=== PATIENT | male | born 1960 | race Caucasian/White ===

== ENCOUNTER 2020-05-04 05:32 | Inpatient (IN) | payer OTHER, SELFPAY ==
[2020-05-04] VITALS (23 sets, daily range): BP systolic 131–193; BP diastolic 79–109; PULSE 60–92; RESP 18–24; TEMP 36.2–37; O2SAT 93–96; BMI 25.6
--- NOTE | 2020-05-04 | ECHO_ITS ---
Patient Info Name: Thierry Oropeza Age: 59 years : 1960 Gender: Male Ht: 70 in Wt: 178 lbs BSA: 2.01 m2 HR: 78 bpm BP: 145 / 90 mmHg Technical Quality: Good Exam Date: 05/04/2020 4:20 PM Exam Location: [facility] Pulmonary Exam Room: 209 Patient Status: Inpatient Admit Date: 05/04/2020 Staff Ordering Physician: Rose Davila NP Corrugator: Nancy Burger RCS Attending Provider: Tiera Carlos MD Referring Physician: Lola GRIMES; Exam Type: CA echo doppler color flow Study Info Indications - PE HTN CP SOB Complete two-dimensional, color flow and Doppler transthoracic echocardiogram is performed. Summary 1. Left ventricular systolic function is normal, estimated at 60-65%. 2. The left ventricular diastolic function is normal. 3. There is trace mitral valve regurgitation. 4. There is trace tricuspid valve regurgitation. 5. No pulmonary hypertension, estimated pulmonary arterial systolic pressure is 19 mmHg. 6. There is mild pulmonic regurgitation. Left Ventricle Left ventricular chamber dimension is normal. Left ventricular systolic function is normal, estimated at 60-65%. There is no increased left ventricular wall thickness. Left ventricular septal wall motion is normal. The left ventricular diastolic function is normal. Global longitudinal strain is normal at -18 %. Right Ventricle Right ventricular chamber dimension is normal. Right ventricular systolic function is normal. Left Atria Left atrial chamber dimension is normal. Right Atria Right atrial chamber dimension is normal. Atrial Septum Intact interatrial septum visualized by color flow imaging. Aortic Valve The aortic valve is trileaflet. There is no aortic valve sclerosis. There is no aortic valve stenosis. There is no aortic valve regurgitation. Pulmonic Valve The pulmonic valve is normal. There is no pulmonic valve stenosis. There is mild pulmonic regurgitation. Mitral Valve The mitral valve has thickened leaflets. There is no mitral valve stenosis. There is trace mitral valve regurgitation. Tricuspid Valve The tricuspid valve leaflets are normal. There is no significant tricuspid valve stenosis. There is trace tricuspid valve regurgitation. No pulmonary hypertension, estimated pulmonary arterial systolic pressure is 19 mmHg. Pericardium/Pleural The pericardium appears normal. There is no pericardial effusion. Inferior Vena Cava Normal inferior vena cava with >50% collapse upon inspiration consistent with normal right atrial pressure, 5 mmHg. Aorta The aortic root size at the sinus of Valsalva is normal. The prox ascending aorta size is normal. Left Ventricular Outflow Tract Name Value Normal LVOT 2D LVOT Diameter 2.1 cm LVOT Doppler LVOT Peak Gradient 4 mmHg LVOT Mean Gradient 2 mmHg LVOT VTI 20 cm LVOT VTI/AV VTI Ratio 0.9 LVOT Stroke Volume 71 ml LVOT CO 15.2 l/min
--- NOTE | ~2020-05-04 | US_ITS ---
EXAMINATION: US venous doppler [facility] DATE: 05/04/2020 08:18 INDICATION: Pulmonary emboli. Shortness of breath. TECHNIQUE: Grayscale ultrasound images without and with compression and Doppler ultrasound images of the bilateral lower extremity veins were obtained. COMPARISON: None. FINDINGS: The visualized portions of right common femoral vein, profunda (deep) femoral vein, femoral vein, pop liteal vein, posterior tibial veins, peroneal veins, gastrocnemius vein and greater saphenous vein ou tflow are patent. The visualized portions of left common femoral vein, profunda femoral vein, femoral vein, popliteal v ein, posterior tibial veins, peroneal veins, gastrocnemius vein and greater saphenous vein outflow ar e patent. IMPRESSION: 1. No deep venous thrombosis in either lower limb. Reviewed, dictated and finalized at location A.
--- NOTE | ~2020-05-04 | CT_ITS ---
EXAMINATION: CTA chest PE protocol DATE: 05/04/2020 06:23 INDICATION: Chest pain and shortness of breath TECHNIQUE: Computed tomography (CT) pulmonary angiogram of the chest was performed with 100 mL Omnipa que-350 intravenous contrast. Additional 3D reconstructions utilizing coronal maximum intensity proje ction (MIP) were performed. Automated exposure control and iterative reconstruction technique were em ployed. The dose-length product was 388.16 mGy-cm. COMPARISON: None FINDINGS: Excellent contrast opacification of the pulmonary arteries. There is mild streak artifact from dense contrast in the superior vena cava and right atrium. Mild scattered respiratory motion artifact. Ther e are scattered pulmonary emboli in a few of the distal segmental and subsegmental pulmonary arteries of both the left and right lower lobes still with relatively low clot burden. Tiny bilateral pleural effusions with mild atelectasis along the lung bases and in the dependent lower lobes. Small periphe ral region of groundglass opacity in the lateral basilar segment of the left lower lobe peripheral to a pulmonary embolism most likely representing a small pulmonary infarct. Mild emphysema with upper l dolores predominance. Heart size is normal. No leftward bowing of the ventricular septum to suggest right heart strain. No pericardial effusion. Atherosclerotic coronary artery calcification. Thoracic aorta is normal in kristin danika with no dissection. No pathologically enlarged thoracic lymphadenopathy. The visualized upper abd omen is unremarkable. Mild to moderate thoracic spondylosis. IMPRESSION: 1. Pulmonary emboli in the bilateral lower lobes with relatively low clot burden. 2. Small pulmonary infarct in the lateral basilar segment of the left lower lobe and tiny bilateral p leural effusions. Reviewed, dictated and finalized at location A. IMPRESSION: 1. Pulmonary emboli in the bilateral lower lobes with relatively low clot burde n. 2. Small pulmonary infarct in the lateral basilar segment of the left lower lob e and tiny bilateral pleural effusions.
--- NOTE | 2020-05-04 05:34 | ECG_ITS ---
Measurements Intervals [place] Rate: 92 P: 125 WI: 154 QRS: 151 QRSD: 81 T: 155 QT: 363 QTc: 451 Interpretive Statements SINUS RHYTHM ARM LEADS REVERSED BASELINE ARTIFACT- I, II, III, AVR, AVL, AVF, V3-V6 ATYPICAL ECG Electronically Signed On 05-04-2020 7:40:07 CDT by Donaldo Danielle D.O.
--- NOTE | 2020-05-04 05:47 | ED.SOB ---
HPI - SOB/Dyspnea General Chief Complaint: Shortness of Breath/Dyspnea Stated Complaint: sob Time Seen by Provider: 05/04/20 05:47 History of Present Illness HPI Narrative: Patient is a 59-year-old male who presents the ER with chest pain and shortness of breath. Patient reports about a week ago he started having right-sided chest pain anterior chest wall. Did not think much of it but now he is developing diffuse pains to his chest and his back. This began about 12 hours ago. Pain is worse with deep breath. Is causing him to hyperventilate the anxious. Denies any recent runny nose/sore throat/productive cough. He has had no recent trauma or lower extremity swelling. No long distance travel. Mother has history of blood clots. He has had no hemoptysis. Smokes a pack a day. Related Data Home Medications Medication Instructions Recorded Confirmed No Home Medications 05/04/20 Allergies Allergy/AdvReac Type Severity Reaction Status Date / Time No Known Allergies Allergy Unverified 11/21/17 13:19 Review of Systems Review of Systems: All systems reviewed & are unremarkable except as noted in HPI and below Constitutional: Constitutional: Denies chills, Denies fever(s) and Denies weakness ENT: Denies nasal congestion and Denies sore throat Cardiovascular: Cardiovascular: Reports chest pain and Denies radiating jaw, neck or arm pain Respiratory: Respiratory: Denies chest congestion, Reports cough, Reports dyspnea and Denies wheezing Gastrointestinal: Gastrointestinal: Denies abdominal pain, Denies diarrhea, Denies nausea and Denies vomiting PMFSH Past Medical History Medical History (Updated 05/04/20 @ 07:46 by Hua Walker MD) Hypertension Surgical History Surgical History (Updated 05/04/20 @ 06:29 by Hua Walker MD) No history of previous surgery Family History Family History (Updated 01/03/18 @ 13:56 by DOCTOR UNKNOWN) Father Diabetes mellitus, Onset Age: 66 Social History Social History Smoking status: Former smoker Smoking end date: 11/11/16 Exam Narrative: Exam Narrative: GENERAL: Anxious and uncomfortable-appearing, well-nourished, and in moderate distress. HEAD: Normocephalic, atraumatic. ENT: Mucous membranes moist. CHEST: Diffuse rhonchi. Tachypnea speaking in 4-5 word sentences. HEART: Regular rate and rhythm. No murmur heard. Normal peripheral pulses. ABDOMEN: Soft, nontender, nondistended. EXTREMITIES: Normal range of motion. No edema. SKIN: Warm, dry, no rash. NEURO: Alert and oriented x3. Course Course Emergency Course: Patient became much more comfortable while in the ER prior to receiving any pain medication. Still is having pain but decreased significantly. Still has discomfort with deep breath. CT with evidence of PE. Patient will be admitted to hospitalist service. Vital Signs Vital signs: Vital Signs Temperature 97.9 F 05/04/20 05:36 Pulse Rate 92 05/04/20 05:36 Respiratory Rate 20 05/04/20 05:36 Blood Pressure 193/109 H 05/04/20 05:36 Pulse Oximetry 96 05/04/20 05:36 Temperature 97.9 F 05/04/20 06:24 Pulse Rate 66 05/04/20 07:21 Respiratory Rate 20 05/04/20 07:21 Blood Pressure 152/87 H 05/04/20 07:21 Pulse Oximetry 95 05/04/20 07:21 MDM - SOB/Dyspnea Lab Data Result diagrams: 05/04/20 05:46 05/04/20 05:46 Labs: Lab Results 05/04/20 05/04/20 05/04/20 Range/Units 05:46 05:46 05:47 WBC 11.0 H (4.5-10.0) K/mm3 RBC 5.04 (4.6-6.20) M/mm3 Hgb 16.9 (14.0-18.0) g/dL Hct 49.7 (42.0-52.0) % MCV 98.6 (80-100) fl MCH 33.5 (26-34) pg MCHC 34.0 (32-36) g/dl RDW 13.4 (11.5-14.5) % Plt Count 311 (150-375) k/mm3 MPV 9.7 (7.4-10.4) fl Immature Gran % (Auto) 0.3 (0-0.5) % Neut % (Auto) 59.3 (45.5-73.1) % Lymph % (Auto) 25.8 (18.3-44.2) % [place] % (Auto) 10.1 H (2.6-8.5) % Eos % (Auto) 3.6
[2020-05-04 05:54] LABS: Basophils Absolute Auto 0.1 K/mm3 (0.0-0.1); Basophils Percent Auto 0.9 % (0.2-1.2); Eosinophils Absolute Auto 0.4 K/mm3 (0-0.3); Eosinophils Percent Auto 3.6 % (0-4.4); Hematocrit 49.7 % (42.0-52.0); Hemoglobin 16.9 g/dL (14.0-18.0); Immature Granulocyte Absolute 0.03 K/mm3 (0.00-0.031); Immature Granulocyte Percent A 0.3 % (0-0.5); Lymphocytes Absolute Auto 2.83 K/mm3 (0.9-3.2); Lymphocytes Percent Auto 25.8 % (18.3-44.2); Mean Corpuscular Hemoglobin 33.5 pg (26-34); Mean Corpuscular Volume 98.6 fl (80-100); Mean Platelet Volume 9.7 fl (7.4-10.4); Monocytes Absolute Auto 1.1 K/mm3 (0.1-0.6); Monocytes Percent Auto 10.1 % (2.6-8.5); Neutrophils Absolute Auto 6.5 K/mm3 (1.3-6.7); Neutrophils Percent Auto 59.3 % (45.5-73.1); Platelet Count Result 311 k/mm3 (150-375); Red Blood Count 5.04 M/mm3 (4.6-6.20); Red Cell Distribution Width 13.4 % (11.5-14.5)
[2020-05-04] MEDS: MORPHINE SULFATE 4 MG/ML INJ IV PUSH ×2 (05:54→16:17)
[2020-05-04 06:02] LABS: Alveolar/Arterial O2 Gradient 48.4 mmHg; Base Excess ABG -2.5 mEq/l (+/-2.0); Carboxyhemoglobin 2.9 % THb (0-2.0); Fractional Inspired Oxygen 21 %; HCO3 ABG 20.8 mEq/l (22.0-26.0); Methemoglobin ABG 0.5 %THb (0-1.5); Oxygen Content ABG 20.9 %vol (16.0-22.0); Oxygen Saturation ABG 92.8 % (95.0-100.0); Oxyhemoglobin 89.2 % THb (90.0-100.0); PCO2 ABG 32.3 mmHg (35.0-45.0); PO2 ABG 62.7 mmHg (80.0-100.0); PO2 FiO2 Ratio Arterial Blood 2.99 %; Reduced Hemoglobin 7.4 %THb (0-5.0); Total Hemoglobin 16.7 g/dL (12.0-18.0); pH ABG 7.426 (7.350-7.450)
[2020-05-04 06:03] LABS: Site Drawn RIGHT RADIAL
[2020-05-04 06:04] LABS: Device ROOM AIR; Modified Allen's Test Pass
[2020-05-04 06:04] LABS: INR 0.9; Prothrombin Time 12.2 Seconds (11.1-14.7)
[2020-05-04 06:05] LABS: Partial Thromboplastin Time 32.3 SECONDS (22.3-36.8)
[2020-05-04 06:06] LABS: Blood Urea Nitrogen 12 mg/dL (9-20); Calcium 9.6 mg/dL (8.4-10.2); Carbon Dioxide 27 mmol/L (22-30); Chloride 104 mmol/L (98-107); Estimated CRCL calculation 89 ml/min; Estimated Glomerular Filt Rate > 60; Glucose 102 mg/dL (75-110); Potassium 4.4 mmol/L (3.4-5.0); Sodium 137 mmol/L (137-145)
[2020-05-04 06:15] LABS: NT Pro B Type Natriuretic Pept 119 PG/ML (5-100)
[2020-05-04 06:21] LABS: Troponin I < 0.012 ng/mL (0.000-0.034)
--- NOTE | 2020-05-04 07:20 | PC.NURSE ---
Assumed care of pt, pt is alert and upright on stretcher. at bedside. Discussed POC. VSS.
[2020-05-04] MEDS: HEPARIN SODIUM 5,000 UNITS/ML VIAL 6500 UNITS IV PUSH (07:32)
--- NOTE | 2020-05-04 07:53 | PC.NURSE ---
Pt to U/S via stretcher.
[2020-05-04] MEDS: HEPARIN SOD/D5W 100 UNITS/ML 25,000 UNITS/250 ML BAG 15 UNITS IV CONT (08:43)
--- NOTE | 2020-05-04 09:07 | ADMGEN ---
This patient, Thierry Oropeza, was admitted to IMU Room 209- 0900. Patient/family oriented to hospital policies and general routines including ID bracelet, bed and alarms, visiting hours, pain management, procedures, bathroom and other care routines, personal items, smoking policy, room service/diet, and visiting hours. Valuables list has been completed. Information on how to activate the Rapid Response Team has been discussed. Patient/Family are encouraged to report perceived risks to care and to ask questions if they do not understand what they are told or what they should do.
[2020-05-04 11:16] LABS: Troponin I < 0.012 ng/mL (0.000-0.034)
[2020-05-04 14:51] LABS: Partial Thromboplastin Time 114.7 SECONDS (22.3-36.8)
--- NOTE | 2020-05-04 14:59 | PM.IMHP ---
H&P: HPI History of Present Illness Chief complaint: pulmonary embolism Narrative: Thierry Oropeza is a 59 year old male no prior history of having any PEs or DVTs. The patient stated that he had a leg cramp about 2 or 3 weeks ago but in the morning he woke up and was just sore. The patient stated also couple weeks ago he felt like he strained his muscles on the right side of his chest. Since then he has been short of breath. The patient stated he felt like he pulled a muscle and lasted for 2 days and it went away but then it came back. The patient has been having some right-sided chest pain anterior wall chest pain. And then the patient had diffuse pains to his chest and back that started about 12 hours ago. The pain is worse with deep breath. He said he just started smoking again after quitting for 9 months. The pain has caused him to hyperventilate and become anxious. He has had a loose nonproductive cough he has had no recent trauma or any swelling to his lower extremities. He has had no immobility no recent surgery or any long distance travel. His mother had blood clots after she had a knee replacement. He smokes about a pack a cigarettes a day. CT a pulmonary was read as bilateral pulmonary emboli and lower lobes with relatively low clot burden. Small pulmonary infarct in the lateral basilar segment of the left lower lobe and tiny bilateral pleural effusions. Patient was started on heparin drip. Review of Systems Review of Systems: All systems reviewed & are unremarkable except as noted in HPI and below Constitutional: Constitutional: Reports as per HPI and Reports no additional constitutional complaints Eyes: Eyes: Reports as per HPI and Reports no additional eye complaints ENT: Reports system reviewed and no additional complaints, except as documented and Reports Normal hearing present Cardiovascular: Cardiovascular: Reports no additional cardiovascular complaints Respiratory: Respiratory: Reports no additional respiratory complaints and Reports no additional respiratory complaints Gastrointestinal: Gastrointestinal: Reports as per HPI and Reports no additional gastrointestinal complaints Musculoskeletal: Musculoskeletal: Reports no additional musculoskeletal complaints Integumentary/Breasts: Skin/Breast: Reports system reviewed and no additional complaints, except as docu and Reports as per HPI Neurologic: Reports system reviewed and no additional complaints, except as documented, Reports as per HPI and Reports Normal hearing present Psychiatric: Psychiatric: Reports no additional psychiatric complaints and Reports as per HPI Endocrine: Endocrine: Reports no additional endocrine complaints Hematologic/Lymphatic: Hematologic/Lymphatic: Reports no additional hematologic/lymphatic complaints Allergic/Immunologic: Allergic/Immunologic: Reports no additional allergic/immunologic complaints PMFSH Past Medical History Medical History (Updated 05/04/20 @ 15:08 by Rose Davila NP) Hypertension Surgical History Surgical History (Updated 05/04/20 @ 15:08 by Rose Davila NP) S/P arthroscopic surgery of right knee Family History Family History (Updated 05/04/20 @ 15:06 by Rose Davila NP) Father Diabetes mellitus, Onset Age: 66 Mother Postoperative deep vein thrombosis (DVT) Pulmonary emboli Postop Social History Social History (Updated 05/04/20 @ 15:12 by Rose Davila NP) Social History: The patient lives with his . She he desires to have her is the durable power real estate associate attorney for healthcare. Patient desires to be a full code. The patient works for [employer]. The patient has 1 son. Patient stated that he quit smoking for 9 months and then recently went back to smoking again at least a pack a cigarettes a day. However he tells me that he is quitting today. He denies any marijuana or illicit drugs. Smoking packs per day: 1 Smoking cigarettes per day: 20
[2020-05-04 15:02] LABS: Troponin I < 0.012 ng/mL (0.000-0.034)
[2020-05-04 21:12] LABS: Partial Thromboplastin Time 73.5 SECONDS (22.3-36.8)
[2020-05-05] VITALS (15 sets, daily range): BP systolic 117–130; BP diastolic 69–82; PULSE 60–98; RESP 18–24; TEMP 35.7–36.8; O2SAT 18–96
[2020-05-05 03:13] LABS: Basophils Absolute Auto 0.1 K/mm3 (0.0-0.1); Basophils Percent Auto 0.8 % (0.2-1.2); Eosinophils Absolute Auto 0.4 K/mm3 (0-0.3); Eosinophils Percent Auto 3.3 % (0-4.4); Hematocrit 44.7 % (42.0-52.0); Hemoglobin 15.4 g/dL (14.0-18.0); Immature Granulocyte Absolute 0.04 K/mm3 (0.00-0.031); Immature Granulocyte Percent A 0.4 % (0-0.5); Lymphocytes Absolute Auto 2.29 K/mm3 (0.9-3.2); Lymphocytes Percent Auto 21.1 % (18.3-44.2); Mean Corpuscular HGB Conc 34.5 g/dl (32-36); Mean Corpuscular Hemoglobin 33.9 pg (26-34); Mean Corpuscular Volume 98.5 fl (80-100); Mean Platelet Volume 9.8 fl (7.4-10.4); Monocytes Absolute Auto 0.9 K/mm3 (0.1-0.6); Neutrophils Absolute Auto 7.2 K/mm3 (1.3-6.7); Neutrophils Percent Auto 66.4 % (45.5-73.1); Platelet Count Result 271 k/mm3 (150-375); Red Blood Count 4.54 M/mm3 (4.6-6.20); Red Cell Distribution Width 13.5 % (11.5-14.5); White Blood Count 10.8 K/mm3 (4.5-10.0)
[2020-05-05 03:24] LABS: Partial Thromboplastin Time 84.4 SECONDS (22.3-36.8)
[2020-05-05 03:26] LABS: Alanine Aminotransferase 17 U/L (4-50); Alkaline Phosphatase 96 U/L (38-126); Aspartate Amino Transferase 20 U/L (17-59); Bilirubin,Total 0.7 mg/dL (0.2-1.3); Blood Urea Nitrogen 12 mg/dL (9-20); Calcium 9.1 mg/dL (8.4-10.2); Carbon Dioxide 25 mmol/L (22-30); Chloride 103 mmol/L (98-107); Estimated CRCL calculation 89 ml/min; Estimated Glomerular Filt Rate > 60; Glucose 103 mg/dL (75-110); Lactic Acid 0.7 mmol/L (0.7-2.1); Potassium 4.1 mmol/L (3.4-5.0); Sodium 135 mmol/L (137-145)
[2020-05-05] MEDS: HEPARIN SOD/D5W 100 UNITS/ML 25,000 UNITS/250 ML BAG 13 UNITS IV CONT ×2 (03:26→23:50)
[2020-05-05] MEDS: MORPHINE SULFATE 4 MG/ML INJ IV PUSH ×2 (08:52→17:47)
--- NOTE | 2020-05-05 10:31 | PM.IMPN ---
Progress Note: A&P Assessment and Plan (1) Pulmonary embolism: Code(s): I26.99 - Other pulmonary embolism without acute cor pulmonale Status: Acute Assessment and Plan: The patient is currently on heparin drip. [place] and morphine available for pain. Still SOB with pleuritic chest pain but better. Venous Dopplers are negative. Troponin negative x3. Echo essentially normal. Change to oral Eliquis tomorrow. 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 (2) Elevated blood pressure reading in office without diagnosis of hypertension: Code(s): R03.0 - Elevated blood-pressure reading, without diagnosis of hypertension Status: Acute Assessment and Plan: BP 193/109 on admission. Patient has no prior history of hypertension and is not on any medication for this. P.r.n. hydralazine and received one dose yesterday. Could be due to the pain. BP has improved which could be due to the narcotics.. (3) Tobacco abuse: Code(s): Z72.0 - Tobacco use Status: Acute Assessment and Plan: Patient was educated about the benefits of smoking cessation. Subjective Date/time seen: 05/05/20 10:31 Interval history: 59yo male here for SOB and found to have PE. Still with trouble with deep breathing causing CP. No hx of DVT/PE. Son and mother (after a knee replacement) had VTE. No n/v. Feels better today. Exam Narrative: Exam Narrative: AF 124/74 69 24 95% ra Gen - NARD Chest -distant but clear breath sounds. CV -regular rate and rhythm. S1-S2. Telemetry showing no significant dysrhythmias. Abd - Soft, NT/ND, Positive BS Ext - No pedal edema Psych - Nml mood and affect Skin - Warm and dry Objective Data Vital Signs Vital Signs: Vital Signs - 24 hr 05/04/20 12:00 05/04/20 12:18 05/04/20 14:00 Temperature 97.5 F L Pulse Rate 69 70 72 Respiratory Rate 24 H Blood Pressure 145/90 H Pulse Oximetry 96 05/04/20 16:00 05/04/20 18:00 05/04/20 20:00 Temperature 98.6 F Pulse Rate 69 82 74 Respiratory Rate 22 H Blood Pressure 157/99 H Pulse Oximetry 96 05/04/20 20:06 05/04/20 22:00 05/04/20 23:33 Temperature 98.5 F 97.1 F L Pulse Rate 73 60 67 Respiratory Rate 22 H 18 Blood Pressure 132/80 137/84 Pulse Oximetry 94 93 05/05/20 00:00 05/05/20 02:00 05/05/20 03:25 Temperature 96.3 F L Pulse Rate 72 65 71 Respiratory Rate 18 Blood Pressure 124/82 Pulse Oximetry 93 05/05/20 04:00 05/05/20 06:00 05/05/20 08:00 Temperature 97.8 F Pulse Rate 60 69 72 Respiratory Rate 24 H Blood Pressure 124/74 Pulse Oximetry 95 05/05/20 10:00 Temperature Pulse Rate 69 Respiratory Rate Blood Pressure Pulse Oximetry Intake/Output Intake/Output: Intake & Output 05/02/20 05/03/20 05/04/20 05/05/20 23:59 23:59 23:59 23:59 Intake Total 1680 510 Output Total 1500 675 Balance 180 -165 Meds/Results Medications: Active Medications Generic Name Dose Route Start Last Admin Trade Name Freq PRN Reason Stop Dose Admin Acetaminophen 650 mg 05/04/20 07:41 Tylenol Tablet PO Q4H PRN Mild Pain (1-3) or Fever Hydrocodone Bitart/Acetaminophen 1 tab 05/04/20 07:41 [place] 5-325 Mg PO Q4H PRN Pain Rated 4-6 Heparin Sodium (Porcine) 6,500 units 05/04/20 07:26 Heparin Sodium IV PUSH PRN PRN aPTT less than 55 seconds Heparin Sodium (Porcine) 3,500 units 05/04/20 07:26 Heparin Sodium IV PUSH PRN PRN aPTT 55 - 70 seconds Hydralazine HCl 10 mg 05/04/20 15:15 Apresoline Hcl Inj IV PUSH Q8H PRN Blood Pressure - High Heparin Sodium/Dextrose 25,000 units in 250 mls @ 13 mls/hr 05/04/20 07:30 05/05/20 05:48 Heparin Sodium/D5w 100 Units/Ml IV CONT 1,300 units/hr .[id number] CHRISTINE 13 mls/hr Titration Protocol 1,300 UNITS/HR Morphine Sulfate 4 mg 05/04/20 07:41 05/05/20 08:52 Morphine Sulfate Inj IV PUSH
[2020-05-06] VITALS: PULSE 70
[2020-05-06 03:53] VITALS: BP 114/70; PULSE 75; RESP 16; TEMP 36.6; O2SAT 93
[2020-05-06 04:00] VITALS: PULSE 72
[2020-05-06 05:02] LABS: Partial Thromboplastin Time 72.4 SECONDS (22.3-36.8)
[2020-05-06 08:00] VITALS: BP 127/76; PULSE 72; RESP 14; TEMP 36.8; O2SAT 95
[2020-05-06] MEDS: APIXABAN 5 MG TABLET 10 MG PO (08:56)
--- NOTE | 2020-05-06 13:57 | PM.DS ---
DS: Admitting Diagnosis Admitting Diagnosis Admitting Diagnosis: Other pulmonary embolism without acute cor pulmonale DS: Discharge Diagnosis Discharge Diagnosis (1) Pulmonary embolism: Code(s): I26.99 - Other pulmonary embolism without acute cor pulmonale Status: Acute Assessment and Plan: The patient presented with shortness of breath. CTA showing pulmonary emboli in the bilateral lower lobes with relatively low clot burden and small pulmonary infarct in the lateral basilar segment of the left lower lobe and tiny bilateral pleural effusions. Patietn has family history of VTE but otherwise no obvious inciting event. The patient started on heparin drip. [place] and morphine available for pain. SOB and pleuritic chest pain improved. Venous Dopplers are negative. Troponin negative x3. Echo essentially normal. Changed to oral Eliquis tomorrow. (2) Elevated blood pressure reading in office without diagnosis of hypertension: Code(s): R03.0 - Elevated blood-pressure reading, without diagnosis of hypertension Status: Acute Assessment and Plan: BP 193/109 on admission. Patient has no prior history of hypertension and is not on any medication for this. P.r.n. hydralazine and received one dose. [place] elevated BP related to the pain. BP has improved. (3) Tobacco abuse: Code(s): Z72.0 - Tobacco use Status: Acute Assessment and Plan: Patient was educated about the benefits of smoking cessation. DS: Summary Hospital Course Reason for hospitalization: 59yo male here for SOb abd found to have PE. Please see H&P for details Hospital Course: As above Time Spent with Patient Time attestation: Total time spent providing and/or coordinating discharge services: 35 minutes Time spent: Greater than 30 minutes Specific discharge activities: Time spent educating the patient about the risks and benefits of anticoagulation. Patient also was advised to have all routine cancer screening test performed by his primary care doctor. Discussed with case management Exam Narrative: Exam Narrative: Pleuritic pain better. AF 127/76 72 Gen - NARD Chest - CTA bilaterally, nml RR CV - RRR. S1-S2 Abd - Soft, NT/ND, Positive BS Ext - No pedal edema Psych - Nml mood and affect Skin - Warm and dry DS: Data Data Completed and Pending Labs on day of discharge: Labs from last 24 hours 05/06/20 04:17 APTT 72.4 H Discharge Plan Discharge Attending physician on discharge: Augusto Stern Discharging Clinician: Augusto Stern Anticipated Discharge Date/Time: 05/06/20 14:34 Patient Disposition: Home, Self-Care Activity: as tolerated Diet: regular Patient Instructions: Pulmonary Embolism (DC), How to Stop Smoking (DC), Pain Management (DC), Safe Use of Anticoagulants (DC), Antibiotic Form Stand Alone Forms: General Discharge Information Follow-up/Referrals: Michael Rucker MD [Primary Care Provider] - Call for Appointment Discharge Medications: New Eliquis 5 mg Tablet 10 mg PO Q12HR Qty: 26 RF: 0 Eliquis 5 mg Tablet 5 mg PO Q12HR Qty: 60 RF: 2 No Action No Home Medications RF: 0 Date of admission: 05/05/20 14:51 Primary Care Provider: Michael Rucker Admitting Provider: Tiera Carlos Attending physician on admission: Augusto Stern Condition: Stable Quality VTE Prophylaxis VTE prophylaxis: pharmacologic ordered
== END 2020-05-06 15:22 | disposition home or self-care (01) | DRG 176 ==
LOC: ANHED 08:06 → ANHIMU 08:14
PROVIDERS: Family Medicine; Nurse Practitioner; Admitting Provider Family Medicine; Emergency Provider Emergency Medicine; PCP Emergency Medicine; Visit Provider Internal Medicine
DX: I26.99 Other pulmonary embolism without acute cor pulmonale (principal); R03.0 Elevated blood-pressure reading, without diagnosis of hypertension; F17.210 Nicotine dependence, cigarettes, uncomplicated
CPT/HCPCS: 36415; 36600; 71275; 80048; 80053; 82375; 82805; 83050; 83605; 83880; 84443; 84484; 85025; 85610; 85730; 93005; 93306; 93970; 96365; 96366; 96375; 96376; 99291; A9270; G0378; J1644; J2270; Q9967

== ENCOUNTER 2020-05-14 12:34 | Emergency (ER) | payer OTHER, SELFPAY ==
--- NOTE | ~2020-05-14 | XR_ITS ---
EXAMINATION: XR elbow RT min 3V DATE: 05/14/2020 13:12 INDICATION: Right elbow injury TECHNIQUE: Anteroposterior, two oblique and lateral views of the right elbow were obtained. COMPARISON: None. FINDINGS: Alignment is normal. No fracture. Joint spaces are normal. No evident right elbow joint effusion. The re is marked soft tissue swelling with relatively homogeneous density posterior to the proximal tip o f the olecranon which in the acute setting could represent either hematoma or bursitis. IMPRESSION: 1. Marked soft tissue swelling posterior to the olecranon which could represent either a hematoma or bursitis. No osseous abnormality. Reviewed, dictated and finalized at location A.
[2020-05-14 12:45] VITALS: BP 150/79; PULSE 74; RESP 16; TEMP 37.1; O2SAT 99
--- NOTE | 2020-05-14 13:33 | ED.UPPEXIN ---
HPI - Extremity Injury (Upper) General Chief Complaint: Extremity Injury, Upper Stated Complaint: R elbow swelling; hx blood clots Time Seen by Provider: 05/14/20 13:16 Source: patient and family History of Present Illness HPI narrative: Patient came because of the swelling of the right elbow posteriorly after he got bumped to the right elbow twice today. This started 2 hours prior to arrival. Patient started Eliquis for pulmonary embolism 1 week ago Related Data Allergies Allergy/AdvReac Type Severity Reaction Status Date / Time No Known Allergies Allergy Verified 05/14/20 12:48 Review of Systems Review of Systems: Narrative: CONSTITUTIONAL: Denies fever, chills, or sweats. EYES: Denies visual changes, redness, or discharge. ENT: Denies rhinorrhea, congestion, sore throat, or otalgia. CARDIOVASCULAR: Denies chest pain, palpitations, or edema. RESPIRATORY: Denies cough or dyspnea. GASTROINTESTINAL: Denies abdominal pain, nausea, vomiting, or diarrhea. GENITOURINARY: Denies dysuria or hematuria. SKIN: Denies rash or itching. MUSCULOSKELETAL: Denies back pain, joint pain, or myalgia. NEUROLOGIC: Denies headache, numbness, or weakness. PSYCHIATRIC: Denies anxiety or depression. [facility] Past Medical History Medical History Hypertension Surgical History Surgical History S/P arthroscopic surgery of right knee Family History Family History Father Diabetes mellitus, Onset Age: 66 Mother Postoperative deep vein thrombosis (DVT) Pulmonary emboli Postop Social History Social History Social History: The patient lives with his . She he desires to have her is the durable power disability attorney for healthcare. Patient desires to be a full code. The patient works for [employer]. The patient has 1 son. Patient stated that he quit smoking for 9 months and then recently went back to smoking again at least a pack a cigarettes a day. However he tells me that he is quitting today. He denies any marijuana or illicit drugs. Smoking packs per day: 1 Smoking cigarettes per day: 20.0 Smoking status: Current every day smoker Tobacco type: cigarettes Smoking end date: 11/11/16 Gender identity (if verbalized by the patient): Male Exam Narrative: Exam Narrative: General appearance: Well-developed, well-nourished Skin: Normal color Head: Normocephalic, nontraumatic Eyes: Clear conjunctiva ENT: Oropharynx normal, ears normal, nose normal Neck: Supple, nontender Chest and respiratory: Airway patent, no respiratory distress, no accessory muscle use Heart: Regular rate/rhythm Abdomen: Soft, nontender, no organomegaly, quiet bowel sounds Vascular: Normal peripheral pulses, normal capillary refill. Musculoskeletal: Normal range of motion, nontender back. Right elbow showed large hematoma posteriorly, slightly tender, good range of motion of the right elbow Neurologic: Alert and oriented ?3, CLINICAL DOCUMENTATION CLERK is normal as tested, no gross motor deficit Course Course Emergency Course: Stable Vital Signs Vital signs: Vital Signs Temperature 37.1 C 05/14/20 12:45 Pulse Rate 74 05/14/20 12:45 Respiratory Rate 16 05/14/20 12:45 Blood Pressure 150/79 H 05/14/20 12:45 Pulse Oximetry 99 05/14/20 12:45 Temperature 37.1 C 05/14/20 12:45 Pulse Rate 74 05/14/20 12:45 Respiratory Rate 16 05/14/20 12:45 Blood Pressure 150/79 H 05/14/20 12:45 Pulse Oximetry 99 05/14/20 12:45 MDM - Extremity Injury (U
[2020-05-14 14:33] VITALS: BP 142/68; PULSE 72; RESP 14; TEMP 36.7; O2SAT 100
== END 2020-05-14 14:12 | disposition home or self-care (01) ==
PROVIDERS: Emergency Provider Emergency Medicine; PCP Emergency Medicine
DX: S50.01XA Contusion of right elbow, initial encounter (principal); W22.8XXA Striking against or struck by other objects, initial encounter; Z86.711 Personal history of pulmonary embolism; Z79.01 Long term (current) use of anticoagulants; F17.210 Nicotine dependence, cigarettes, uncomplicated
CPT/HCPCS: 73080; 99283

== ENCOUNTER 2020-05-19 14:35 | Emergency (ER) | payer OTHER, SELFPAY | END 2020-05-19 14:44 | disposition left against medical advice (07) | PROVIDERS: Emergency Provider Nurse Practitioner Family | DX: Z53.21 Procedure and treatment not carried out due to patient leaving prior to being seen by health care provider (principal) | CPT/HCPCS: 99199 ==

== ENCOUNTER 2020-05-19 15:00 | Emergency (ER) | payer OTHER, SELFPAY ==
--- NOTE | ~2020-05-19 | US_ITS ---
EXAMINATION: US venous doppler UE RT DATE: 05/19/2020 18:21 INDICATION: Patient on blood thinners. Trauma to the right arm. TECHNIQUE: Kelley scale images with and without compression and Doppler images of the right upper extre mity veins were obtained. COMPARISON: None. FINDINGS: The right internal jugular vein, subclavian vein, axillary vein, brachial veins, basilic vein, cephal ic vein, radial vein, and ulnar vein are patent. There is heterogeneous soft tissue posterior to the elbow measuring 5.4 x 1.7 x 4.5 cm, compatible with hematoma. IMPRESSION: 1. Patent right upper extremity veins. No evidence of deep venous thrombosis. 2: Heterogeneous soft tissue posterior to the elbow in the area of previous trauma, compatible with h ematoma. Reviewed, dictated and finalized at location A. IMPRESSION: 1. Patent right upper extremity veins. No evidence of deep venous thrombosis. 2: Heterogeneous soft tissue posterior to the elbow in the area of previous tra spring, compatible with hematoma.
[2020-05-19 17:52] VITALS: BP 173/115; PULSE 98; RESP 18; O2SAT 98
--- NOTE | 2020-05-19 18:31 | ED.UPPEXIN ---
HPI - Extremity Injury (Upper) General Chief Complaint: Extremity Injury, Upper Stated Complaint: elbow injury/blood thinners Time Seen by Provider: 05/19/20 17:52 History of Present Illness HPI narrative: Patient is a 59-year-old male who presents the ER with swelling of the right upper extremity. Patient was diagnosed 2 weeks ago with a PE and started on blood thinner. Few days ago he struck his elbow while turning and then later struck it again on a toilet seat which then caused it to swell significantly. He has been developing bruising and swelling since then. He is also been using a hammer with his right arm which is when he struck that is caused increased bruising and discomfort in his forearm. No chest pain or shortness of breath. Was seen in urgent care referred him here for evaluation for DVT due to the swelling. Related Data Allergies Allergy/AdvReac Type Severity Reaction Status Date / Time No Known Allergies Allergy Verified 05/19/20 15:01 Review of Systems Review of Systems: All systems reviewed & are unremarkable except as noted in HPI and below Constitutional: Constitutional: Denies chills, Denies fever(s) and Denies weakness Cardiovascular: Cardiovascular: Denies chest pain Respiratory: Respiratory: Denies cough and Denies dyspnea Musculoskeletal: Comments: Right upper extremity bruising and swelling. [facility] Social History Social History Social History: The patient lives with his . She he desires to have her is the durable power flamer sealer for healthcare. Patient desires to be a full code. The patient works for [employer]. The patient has 1 son. Patient stated that he quit smoking for 9 months and then recently went back to smoking again at least a pack a cigarettes a day. However he tells me that he is quitting today. He denies any marijuana or illicit drugs. Smoking packs per day: 1 Smoking cigarettes per day: 20.0 Smoking status: Current every day smoker Tobacco type: cigarettes Smoking end date: 11/11/16 Gender identity (if verbalized by the patient): Male Exam Narrative: Exam Narrative: GENERAL: Well-appearing, well-nourished, and in no acute distress. HEAD: Normocephalic, atraumatic. ENT: Mucous membranes moist. HEART: Regular rate and rhythm. No murmur heard. Normal peripheral pulses. EXTREMITIES: Normal range of motion. Edema of the right upper extremity below the elbow. Elbow has a enlarged bursa from trauma. There is bruising to the distal forearm and the palmar aspect of the hand.. SKIN: Warm, dry, no rash. NEURO: Alert and oriented x3. Course Course Emergency Course: Patient informed of results. Discharge home. Vital Signs Vital signs: Vital Signs Pulse Rate 98 05/19/20 17:52 Respiratory Rate 18 05/19/20 17:52 Blood Pressure 173/115 H 05/19/20 17:52 Pulse Oximetry 98 05/19/20 17:52 Pulse Rate 98 05/19/20 17:52 Respiratory Rate 18 05/19/20 17:52 Blood Pressure 173/115 H 05/19/20 17:52 Pulse Oximetry 98 05/19/20 17:52 MDM - Extremity Injury (Upper) Imaging Data Radiologist's impression: ITS Impressions Venous Doppler Study 05/19/20 18:22 IMPRESSION: 1. Patent right upper extremity veins. No evidence of deep venous thrombosis. 2: Heterogeneous soft tissue posterior to the elbow in the area of previous trauma, compatible with hematoma. Discharge Plan Discharge Clinical Impression: Hematoma of arm Patient Disposition: Home, Self-Care Condition: Stable Instructions: Hematoma (ED) Additional Instructions: You have a hematoma in your upper extremity likely within your bursa from the trauma. You need to be very careful with your body since you are on a blood thinner and it causes you to bleed with minor trauma. Follow up with your primary care doctor. The hematoma should resolve on its own but if there is any issue you may need refer
[2020-05-19 18:47] VITALS: BP 128/88; PULSE 80; RESP 18; TEMP 36.7; O2SAT 99
== END 2020-05-19 18:48 | disposition home or self-care (01) ==
PROVIDERS: Emergency Provider Emergency Medicine
DX: S50.01XA Contusion of right elbow, initial encounter (principal); Z86.711 Personal history of pulmonary embolism; F17.210 Nicotine dependence, cigarettes, uncomplicated; W22.8XXA Striking against or struck by other objects, initial encounter; Z79.01 Long term (current) use of anticoagulants
CPT/HCPCS: 93971; 99284

== ENCOUNTER 2020-07-23 11:26 | Observation (INO) | payer OTHER, SELFPAY ==
[2020-07-23] VITALS (11 sets, daily range): BP systolic 154–199; BP diastolic 84–118; PULSE 72–95; RESP 16–20; TEMP 36.2–36.8; O2SAT 92–98; BMI 28.8; BMI 29.1
--- NOTE | ~2020-07-23 | MR_ITS ---
EXAMINATION: MR brain/brain stem wo/w con DATE: 07/24/2020 08:36 CDT INDICATION: Alteration of awareness. TECHNIQUE: Magnetic resonance imaging (MRI) of the brain and brainstem was performed without and with 16 cc of enhance intravenous contrast. Sequences included sagittal and axial T1-weighted SE, axial d iffusion-weighted FS SE, axial T2*-weighted GRE, axial T2-weighted FLAIR Propeller, and axial T2-weig hted Propeller. Apparent diffusion coefficient (ADC) maps were created. COMPARISON: CT dated 07/23/2020 FINDINGS: The brain volume and ventricular system are within normal limits. The brain parenchymal si gnal intensity pattern and price/white matter is normal and there is no evidence of hemorrhage, space occupying masses or infarctions. The flow signal voids of the major arterial structures about the pilot station of [place] and within the spencer r dural venous sinuses appear grossly unremarkable and patent. The seventh and eighth cranial nerve complexes are normal. The mid sagittal image demonstrates a normal craniovertebral junction and isidra us callosum. There is a mucous retention cyst of the left maxillary sinus. Scant mucosal thickening o f the paranasal sinuses. No abnormal contrast enhancement was appreciated. IMPRESSION: 1: No acute intracranial abnormality. Reviewed, dictated and finalized at location A.
--- NOTE | ~2020-07-23 | CT_ITS ---
EXAMINATION: CT chest wo con DATE: 07/23/2020 13:41 INDICATION: Lung nodule. TECHNIQUE: Computed tomography (CT) of the chest was performed without intravenous contrast. The dose -length product was 279.11 mGy-cm. Automated exposure control and iterative reconstruction technique were employed. COMPARISON: CT dated 05/04/2020 FINDINGS: There is a wedge-shaped pleural-based soft tissue in the left lower lobe measuring 1.4 x 0. 9 cm greatest axial dimension. This resides at the same location of focal airspace consolidation seen on 05/04/2020 and likely represents sequela of pulmonary infarction given the previous pulmonary embo lism identified. No significant pleural or pericardial effusion. No thoracic lymphadenopathy. There i s mild emphysema. There is right lower lobe atelectasis/scarring. Bibasilar dependent atelectasis. Th ere are scattered calcified granulomas.. IMPRESSION: 1. Wedge-shaped pleural-based soft tissue lateral basilar segment left lower lobe, most likely pulmon tello infarction from prior pulmonary embolism. This corresponds to the nodular density seen on chest x -ray. Recommend follow-up CT in 6 months to assess stability. Reviewed, dictated and finalized at location A. IMPRESSION: 1. Wedge-shaped pleural-based soft tissue lateral basilar segment left lower lo be, most likely pulmonary infarction from prior pulmonary embolism. This corres ponds to the nodular density seen on chest x-ray. Recommend follow-up CT in 6 m [facility] to assess stability.
--- NOTE | ~2020-07-23 | XR_ITS ---
XR chest 1V portable 07/23/2020 12:42 Indication: Confusion. Dyspnea. Procedure: AP portable chest Comparison: 11/21/2017 Findings: There is an irregular nodular density left mid thorax. Heart size normal. Right lung clear. No focal pneumonia, pleural effusion or pneumothorax. Impression: 1: Irregular nodular density left mid thorax. Correlation with CT chest recommended. Reviewed, dictated and finalized at location A. Impression: 1: Irregular nodular density left mid thorax. Correlation with CT chest recomme nded.
--- NOTE | ~2020-07-23 | CT_ITS ---
EXAMINATION: CT BRAIN W/O DATE: 07/23/2020 11:40 INDICATION: Sudden onset of confusion TECHNIQUE: Computed tomography (CT) of the head was performed without intravenous contrast. The dose- length product was 605.33 mGy-cm. The mA was adjusted according to patient size. Iterative reconstruc tion technique was employed. COMPARISON: No prior studies for comparison. FINDINGS: Normal brain parenchymal volume for age. Normal price-white differentiation. No acute intrac ranial hemorrhage, infarction, mass or mass effect. No ventriculomegaly or midline shift. Midline sagittal images demonstrate a normal corpus callosum, c raniovertebral junction and sella turcica. Basilar cisterns are patent. Mild mucosal thickening of the ethmoid and left maxillary sinuses. Mastoids are pneumatized. No depre ssed skull fractures. IMPRESSION: 1. No acute intracranial abnormality. As per stroke protocol, I called these results to emergency room, discussed with Dr. Hua broussard MD at 07/23/2020 11:42 CDT. Reviewed, dictated and finalized at location A. IMPRESSION: 1. No acute intracranial abnormality. As per stroke protocol, I called these results to emergency room, discussed wit h Dr. Hua Walker MD at 07/23/2020 11:42 CDT.
--- NOTE | ~2020-07-23 | US_ITS ---
EXAMINATION: US carotid duplex BI DATE: 07/24/2020 07:58 INDICATION: Sudden onset of confusion TECHNIQUE: Grayscale, color Doppler, and pulsed Doppler images of the cervical carotid arteries were obtained. The degree of vessel stenosis is placed in one of the following categories: normal, <50%, 5 0-69%, >=70% but less than near-occlusion, near-occlusion, or total occlusion. Note that percent sten osis relative to normal distal artery lumen diameter is indirectly measured from velocity measurement s as described by Johnathan, et al. Radiology 2003; 229:340-346. Notes: Normal: Peak systolic velocity <125 centimeters/sec and no plaque <50%. Peak systolic velocity <125 ( EDV <40; ICA/CCA PSV ratio <2.0; used these factors only a tandem lesions or low cardiac output or co ntralateral disease) 50-69 %: PSV 125-230 (EDV 40-100; ratio 2-4) >= 70% but less than near occlusion: PSV greater than 230 (EDV > 100; ratio> 4.0) Near Occlusion: PSV that is variable; markedly narrowed lumen Occlusion: Absent flow on color/spectral Doppler and no lumen on price scale. COMPARISON: None. FINDINGS: RIGHT: The right common carotid artery (CCA) peak systolic velocity (PSV) is 97 cm/s. The right internal car otid artery (ICA) PSV is 103 cm/s. The right ICA end-diastolic velocity (EDV) is 32 cm/s. The right I CA/CCA PSV ratio is 1.1. The external carotid artery (ECA) PSV is 104 cm/s. There is antegrade flow i n the right vertebral artery. LEFT: The left CCA PSV is 104 cm/s. The left ICA PSV is 132 cm/s. The left ICA EDV is 31 cm/s. The left ICA /CCA PSV ratio is 1.3. The ECA PSV is 127 cm/s. There is antegrade flow in the left vertebral artery . IMPRESSION: 1. Less than 50% stenosis in the right internal carotid artery by sonographic criteria. 2. 50-69% stenosis in the left internal carotid artery by sonographic criteria. Reviewed, dictated and finalized at location A. IMPRESSION: 1. Less than 50% stenosis in the right internal carotid artery by sonographic c anne marie. 2. 50-69% stenosis in the left internal carotid artery by sonographic criteria.
--- NOTE | 2020-07-23 11:30 | ECG_ITS ---
Measurements Intervals [place] Rate: 86 P: 37 VA: 146 QRS: 14 QRSD: 86 T: 16 QT: 365 QTc: 439 Interpretive Statements SINUS RHYTHM POSSIBLE LEFT ATRIAL ENLARGEMENT BASELINE ARTIFACT- V1 BORDERLINE ECG Electronically Signed On 07-23-2020 14:23:54 CDT by Donaldo Danielle D.O.
[2020-07-23 11:53] LABS: Basophils Absolute Auto 0.1 K/mm3 (0.0-0.1); Basophils Percent Auto 1.4 % (0.2-1.2); Eosinophils Absolute Auto 0.3 K/mm3 (0-0.3); Eosinophils Percent Auto 2.9 % (0-4.4); Hematocrit 43.2 % (42.0-52.0); Immature Granulocyte Absolute 0.03 K/mm3 (0.00-0.031); Immature Granulocyte Percent A 0.3 % (0-0.5); Lymphocytes Absolute Auto 2.47 K/mm3 (0.9-3.2); Lymphocytes Percent Auto 28.6 % (18.3-44.2); Mean Corpuscular HGB Conc 34.7 g/dl (32-36); Mean Corpuscular Hemoglobin 33.3 pg (26-34); Mean Platelet Volume 9.5 fl (7.4-10.4); Monocytes Absolute Auto 0.8 K/mm3 (0.1-0.6); Monocytes Percent Auto 8.8 % (2.6-8.5); Platelet Count Result 292 k/mm3 (150-375); Red Cell Distribution Width 14.6 % (11.5-14.5); White Blood Count 8.6 K/mm3 (4.5-10.0)
[2020-07-23 12:04] LABS: Prothrombin Time 13.1 Seconds (11.1-14.7)
[2020-07-23 12:05] LABS: Anion Gap 10 mmol/L (8-16); Blood Urea Nitrogen 19 mg/dL (9-20); Calcium 9.1 mg/dL (8.4-10.2); Carbon Dioxide 21 mmol/L (22-30); Chloride 103 mmol/L (98-107); Estimated CRCL calculation 80 ml/min; Estimated Glomerular Filt Rate > 60; Glucose 107 mg/dL (75-110); Sodium 134 mmol/L (137-145)
[2020-07-23 12:17] LABS: Troponin I < 0.012 ng/mL (0.000-0.034)
--- NOTE | 2020-07-23 12:42 | ED.NEUROSD ---
HPI - Neuro Symptoms/Deficit General Chief Complaint: Suspected CVA Stated Complaint: confusion Time Seen by Provider: 07/23/20 11:32 History of Present Illness HPI Narrative: Patient is a 59-year-old male who presents the ER with concerns for strokelike symptoms. Patient had finished taking a shower at 10:30 AM came down the steps confused about what he is going to be doing for the day and had limited memory of a previous visit to the hospital several months ago. Patient continues to have this confusion. He is oriented x3. He has no weakness in arm or leg or slurred speech. Has not had a stroke previously. He is on Eliquis for PE and DVT. Related Data Allergies Allergy/AdvReac Type Severity Reaction Status Date / Time No Known Allergies Allergy Verified 07/23/20 11:53 Review of Systems Review of Systems: All systems reviewed & are unremarkable except as noted in HPI and below Constitutional: Constitutional: Denies chills, Denies fever(s) and Denies weakness ENT: Denies nasal congestion and Denies sore throat Cardiovascular: Cardiovascular: Denies chest pain and Denies radiating jaw, neck or arm pain Respiratory: Respiratory: Denies cough, Denies dyspnea and Denies wheezing Gastrointestinal: Gastrointestinal: Denies abdominal pain, Denies nausea and Denies vomiting Neurologic: Reports confusion, Denies headache(s), Denies focal weakness and Denies numbness PMFSH Past Medical History Medical History (Updated 07/23/20 @ 19:12 by Hua Walker MD) Alcohol abuse DVT (deep venous thrombosis) H/O drainage of abscess behind left ear Hypertension Pulmonary embolism Surgical History Surgical History (Updated 07/23/20 @ 18:19 by Rose Davila NP) H/O left knee surgery repaired laceration Family History Family History Father Diabetes mellitus, Onset Age: 66 Mother Postoperative deep vein thrombosis (DVT) Pulmonary emboli Postop Social History Social History (Updated 07/23/20 @ 18:21 by Rose Davila NP) Social History: The patient lives with his . She he desires to have her is the durable power document review attorney for healthcare. Patient desires to be a full code. The patient works for [employer]. The patient has 1 son. Patient stated that he quit smoking for 9 months and then recently went back to smoking again at least a pack a cigarettes a day. However he tells me that he stop smoking again back in April. He denies any marijuana or illicit drugs. Smoking packs per day: 1 Smoking cigarettes per day: 20.0 Smoking status: Former smoker Tobacco type: cigarettes Smoking end date: 11/11/16 Alcohol intake: current Drinks per week: 30 Substance use: never Gender identity (if verbalized by the patient): Male Spiritual care concerns: No Exam Narrative: Exam Narrative: GENERAL: Well-appearing, well-nourished, and in no acute distress. HEAD: Normocephalic, atraumatic. EYES: PERRL and EOMI. CHEST: Clear to auscultation. No respiratory distress. HEART: Regular rate and rhythm. Normal peripheral pulses. ABDOMEN: Soft, nontender, nondistended. EXTREMITIES: Normal range of motion. No edema. SKIN: Warm, dry, no rash. NEURO: Cranial nerves II through XII intact. No upper or lower extremity drift. Normal [id number] and [id number] testing. Alert and oriented x3 but with loss of memory regarding some of the days' events. PSYCH: Normal mood and affect. Course Course Emergency Course: No patient seems to be improving. Does not member his initial evaluation and has had repetitive questions. Blood pressure trending down. Admit for observation and further work-up. CT obtained due to pulmonary nodule and patient smoking history. It reflects pulmonary infarct from previous PE. Vital Signs Vital signs: Vital Signs Temperature 98.2 F 07/23/20 11:30 Pulse Rate 84 07/23/20 11:30 Respi
--- NOTE | 2020-07-23 12:58 | PC.NURSE ---
pt states is feeling much better. pt has recollection of some short term memory. speech hesistant. remains at bedside.
--- NOTE | 2020-07-23 14:19 | PC.NURSE ---
pt noted by have bradycardic episode to 30. pt states he was anxious about cxr showing possible cancer. became lightheaded and dizzy. diaphoretic. episode resolved on own. edp notified.
--- NOTE | 2020-07-23 15:13 | PC.NURSE ---
This patient, Thierry Oropeza, was admitted to Medical Room 346-01. Patient/family oriented to hospital policies and general routines including ID bracelet, bed and alarms, visiting hours, pain management, procedures, bathroom and other care routines, personal items, smoking policy, room service/diet, and visiting hours. Valuables list has been completed. Information on how to activate the Rapid Response Team has been discussed. Patient/Family are encouraged to report perceived risks to care and to ask questions if they do not understand what they are told or what they should do.
[2020-07-23] MEDS: hydrALAZINE HCL 20 MG/ML VIAL 10 MG IV PUSH (16:23)
--- NOTE | 2020-07-23 18:10 | PM.IMHP ---
H&P: HPI History of Present Illness Date/Time: 07/23/20 18:10 Chief complaint: tga,lung nodule Narrative: Thierry Oropeza is a 59 year old male Who has a history of having a pulmonary emboli within the past 6 months. The patient is still on Eliquis. There was no known reason for him to have a PE. He stated that he had a long motorcycle ride at that time it may be that was the cause of it. But he has not had a DVT. His no prior history of having any hypertension. He drinks approximately 4-6 shots of whiskey a day. However he states that he is not had any alcohol withdrawal symptoms. The patient came to the emergency room to be evaluated for stroke-like symptoms today. The patient had finished taking a shower on 09/09 this morning he was very confused. he kept asking his what days a week it was. he kept asking her if today was Saturday. He was confused about where his doctor's office was not thought he was going to his doctor's office today. He did not have any focal weakness no weakness is arms or legs or any slurred speech. No gait instability. The patient has not had any recent fall or hit his head. When he came to the emergency room he was alert orientated x3. CT of the brain was read by radiology as no acute intracranial abnormalities. Chest x-ray was read as irregular nodule density left mid thorax. Correlate with the CT. Therefore patient did have a CT and was read as wedge-shaped pleural-based soft tissue lateral basilar segment left lower lobe, most likely pulmonary infarction from prior pulmonary embolism. Follow-up with a [address] scan. Once the patient was admitted to the medical floor he had an episode were became diaphoretic and nauseated. He felt very dizzy at that time his heart rate was showing 31 on the monitor. The patient had been given hydralazine for his blood pressure which was extremely high. He does not take any medicine for blood pressure. The patient briefly had the symptoms and was resolved once his heart rate came back up. Patient is very anxious today. The patient did have venous Dopplers back in April and they were negative. He also had an echo in April which was unremarkable. The patient had been admitted in April for PN I did see the patient then. I gave him hydralazine once he came up to the floor. Date of service 07/23/2020 Review of Systems Review of Systems: All systems reviewed & are unremarkable except as noted in HPI and below Constitutional: Constitutional: Reports as per HPI and Reports no additional constitutional complaints Eyes: Eyes: Reports as per HPI and Reports no additional eye complaints ENT: Reports system reviewed and no additional complaints, except as documented and Reports Normal hearing present Cardiovascular: Cardiovascular: Reports no additional cardiovascular complaints Respiratory: Respiratory: Reports no additional respiratory complaints and Reports no additional respiratory complaints Gastrointestinal: Gastrointestinal: Reports as per HPI and Reports no additional gastrointestinal complaints Musculoskeletal: Musculoskeletal: Reports no additional musculoskeletal complaints Integumentary/Breasts: Skin/Breast: Reports system reviewed and no additional complaints, except as docu and Reports as per HPI Neurologic: Reports system reviewed and no additional complaints, except as documented, Reports as per HPI and Reports Normal hearing present Psychiatric: Psychiatric: Reports no additional psychiatric complaints and Reports as per HPI Endocrine: Endocrine: Reports no additional endocrine complaints Hematologic/Lymphatic: Hematologic/Lymphatic: Reports no additional hematologic/lymphatic complaints Allergic/Immunologic: Allergic/Immunologic: Reports no additional allergic/immunologic complaints [facility] Past Medical History Medical History (Updated 07/23/20 @ 18:24 by Rose Davila NP) Alcohol abuse DVT (deep venous thrombosis) H/O drainage of abscess
[2020-07-23] MEDS: APIXABAN 5 MG TABLET PO (20:39)
[2020-07-24] VITALS (8 sets, daily range): BP systolic 125–131; BP diastolic 70–87; PULSE 65–74; RESP 20; TEMP 36.4–36.9; O2SAT 98–99
[2020-07-24 06:26] LABS: Basophils Absolute Auto 0.1 K/mm3 (0.0-0.1); Basophils Percent Auto 1.3 % (0.2-1.2); Eosinophils Absolute Auto 0.2 K/mm3 (0-0.3); Eosinophils Percent Auto 2.3 % (0-4.4); Immature Granulocyte Absolute 0.03 K/mm3 (0.00-0.031); Immature Granulocyte Percent A 0.4 % (0-0.5); Lymphocytes Absolute Auto 2.12 K/mm3 (0.9-3.2); Lymphocytes Percent Auto 25.2 % (18.3-44.2); Mean Corpuscular HGB Conc 34.9 g/dl (32-36); Mean Corpuscular Hemoglobin 33.5 pg (26-34); Mean Platelet Volume 9.7 fl (7.4-10.4); Monocytes Absolute Auto 0.7 K/mm3 (0.1-0.6); Neutrophils Absolute Auto 5.3 K/mm3 (1.3-6.7); Neutrophils Percent Auto 62.8 % (45.5-73.1); Platelet Count Result 301 k/mm3 (150-375); Red Blood Count 4.48 M/mm3 (4.6-6.20); Red Cell Distribution Width 14.6 % (11.5-14.5); White Blood Count 8.4 K/mm3 (4.5-10.0)
[2020-07-24 06:41] LABS: Alanine Aminotransferase 31 U/L (4-50); Albumin Level 4.2 g/dL (3.5-5.1); Alkaline Phosphatase 80 U/L (38-126); Anion Gap 8 mmol/L (8-16); Aspartate Amino Transferase 27 U/L (17-59); Bilirubin,Total 0.8 mg/dL (0.2-1.3); Blood Urea Nitrogen 12 mg/dL (9-20); Calcium 9.2 mg/dL (8.4-10.2); Carbon Dioxide 24 mmol/L (22-30); Chloride 103 mmol/L (98-107); Estimated CRCL calculation 75 ml/min; Estimated Glomerular Filt Rate > 60; Glucose 96 mg/dL (75-110); Magnesium 2.3 mg/dL (1.6-2.3); Potassium 3.7 mmol/L (3.4-5.0); Sodium 135 mmol/L (137-145)
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
[2020-07-24] MEDS: APIXABAN 5 MG TABLET PO (09:10)
[2020-07-24] MEDS: FOLIC ACID 1 MG TABLET PO (09:10)
[2020-07-24] MEDS: THIAMINE HCL 100 MG TABLET PO (09:10)
--- NOTE | 2020-07-24 12:15 | PM.DS ---
DS: Admitting Diagnosis Admitting Diagnosis Admitting Diagnosis: tga,lung nodule DS: Discharge Diagnosis Discharge Diagnosis (1) TGA (transient global amnesia): Code(s): G45.4 - Transient global amnesia Status: Acute (2) Alcohol abuse: Code(s): F10.10 - Alcohol abuse, uncomplicated Status: Chronic (3) Pulmonary embolism: Code(s): I26.99 - Other pulmonary embolism without acute cor pulmonale Status: Acute (4) Elevated blood pressure reading in office without diagnosis of hypertension: Code(s): R03.0 - Elevated blood-pressure reading, without diagnosis of hypertension Status: Acute (5) Carotid stenosis: Code(s): I65.29 - Occlusion and stenosis of unspecified carotid artery Status: Acute DS: Summary Hospital Course Reason for hospitalization: Confusion Hospital Course: 59 yo who presented to the hospital with short term memory loss, he states he could not remember the day, who was his doctor or how to get there event thought he was not supposed to go to the doctor. His symptoms resolved when he got to the hospital and probably lasted around 30 minutes. He denies slurred speech, vision changes, paresthesias or unilateral weakness, it seem that a TIA is unlikely and this is rather transient global amnesia. He had a negative brain MRI, his carotid dopplers showed bilateral stenosis 50% on the right and 50-69% on the left however I don't think his symptoms are related to this. Cardiology was consulted for bradycardia which is now resolved, it was thought to be a vasovagal event. The patient was offered a statin drug for his carotid disease however he refused and said he would like to follow up with his PCP on this, His blood pressure has remained wnl this morning without medication so we are not going to prescribe anything since he would prefer to talk with is PCP on this too. Status at Discharge Cognitive/behavioral status at discharge: Alert and oriented Functional status at discharge: independent ambulation Time Spent with Patient Time attestation: Total time spent providing and/or coordinating discharge services: Time spent: Greater than 30 minutes Exam Const: General: comfortable and no acute distress Neck: Neck: supple and no JVD Resp: Effort & Inspection: normal respiratory effort Auscultation: clear to auscultation bilaterally Cardio: Rate: regular rate Rhythm: regular rhythm GI: GI Palp: Yes Soft to palpation Neuro: Motor exam (neuro): 03/15 motor strength present throughout and Normal motor muscle tone present throughout Sensory Exam: normal sensation Other: No focal deficits or cerebellar signs. Psych: Mental Status: mental status grossly normal DS: Data Data Completed and Pending Labs on day of discharge: Labs from last 24 hours 07/24/20 07/24/20 07/24/20 05:57 05:57 05:57 WBC 8.4 RBC 4.48 L Hgb 15.0 Hct 43.0 MCV 96.0 MCH 33.5 MCHC 34.9 RDW 14.6 H Plt Count 301 MPV 9.7 Immature Gran % (Auto) 0.4 Neut % (Auto) 62.8 Lymph % (Auto) 25.2 Cannon % (Auto) 8.0 Eos % (Auto) 2.3 Baso % (Auto) 1.3 H Lymph # (Auto) 2.12 Cannon # (Auto) 0.7 H Eos # (Auto) 0.2 Baso # (Auto) 0.1 Abs Immat Gran (auto) 0.03 Absolute Neuts (auto) 5.3 Absolute Nucleated RBC 0.0 Nucleated RBC % 0.0 Sodium 135 L Potassium 3.7 Chloride 103 Carbon Dioxide 24 Anion Gap 8 BUN 12 D Creatinine 0.90 Estim Creat Clear Calc 75 Estimated GFR > 60 Glucose 96 Calcium 9.2 Magnesium 2.3 Total Bilirubin 0.8 AST 27 ALT 31 Alkaline Phosphatase 80 Troponin I Total Protein 7.0 Albumin 4.2 TSH (Reflex) 2.200 07/23/20 11:46 WBC RBC Hgb Hct MCV MCH MCHC RDW Plt Count MPV Immature Gran % (Auto) Neut % (Auto) Lymph % (Auto) Cannon % (Auto) Eos % (Auto) Baso % (Auto) Lymph # (Auto) Cannon # (Auto) Eos # (Auto) Ba
== END 2020-07-24 13:12 | disposition home or self-care (01) ==
LOC: ANHED 13:17 → ANH3MED 15:32
PROVIDERS: Nurse Practitioner; Admitting Provider Family Medicine; Emergency Provider Emergency Medicine; PCP Internal Medicine; Visit Provider Hospitalist
DX: G45.4 Transient global amnesia (principal); F10.10 Alcohol abuse, uncomplicated; R00.1 Bradycardia, unspecified; I65.23 Occlusion and stenosis of bilateral carotid arteries; I10 Essential (primary) hypertension; Z79.01 Long term (current) use of anticoagulants; Z86.718 Personal history of other venous thrombosis and embolism; Z86.711 Personal history of pulmonary embolism; F17.210 Nicotine dependence, cigarettes, uncomplicated; R91.1 Solitary pulmonary nodule
CPT/HCPCS: 36415; 70450; 70553; 71045; 71250; 80048; 80053; 83735; 84443; 84484; 85025; 85610; 85730; 93005; 93880; 96374; 99285; A9270; A9577; G0378; J0360

== ENCOUNTER 2021-01-12 15:47 | Outpatient (CLI) | payer OTHER, SELFPAY | END 2021-01-12 15:48 | disposition home or self-care (01) | LOC: ANHCOVIDVC 15:47 | PROVIDERS: PCP Internal Medicine | DX: Z23 Encounter for immunization (principal) | CPT/HCPCS: 0001A; 91300 ==

== ENCOUNTER 2021-02-02 15:44 | Outpatient (CLI) | payer OTHER, SELFPAY | END 2021-02-02 15:45 | disposition home or self-care (01) | LOC: ANHCOVIDVC 15:44 | PROVIDERS: PCP Internal Medicine | DX: Z23 Encounter for immunization (principal) | CPT/HCPCS: 0002A; 91300 ==

== ENCOUNTER 2021-03-23 13:28 | Outpatient (CLI) | payer OTHER, SELFPAY ==
--- NOTE | ~2021-03-23 | US_ITS ---
EXAMINATION: US venous doppler [facility] DATE: 03/23/2021 13:59 INDICATION: Acute embolism and thrombosis of unspecified deep veins of unspecified lower extremity. TECHNIQUE: Grayscale ultrasound images without and with compression and Doppler ultrasound images of the bilateral lower extremity veins were obtained. COMPARISON: Ultrasound 05/04/2020 FINDINGS: The visualized portions of right common femoral vein, profunda (deep) femoral vein, femoral vein, pop liteal vein, peroneal veins, posterior tibial veins, and greater saphenous vein outflow are patent. The visualized portions of left common femoral vein, profunda femoral vein, femoral vein, popliteal v ein, peroneal veins, posterior tibial veins, and greater saphenous vein outflow are patent. IMPRESSION: 1. No deep venous thrombosis. Reviewed, dictated and finalized at location B.
== END 2021-03-23 13:29 | disposition home or self-care (01) ==
PROVIDERS: PCP Internal Medicine; Visit Provider Internal Medicine
DX: I82.409 Acute embolism and thrombosis of unspecified deep veins of unspecified lower extremity (principal)
CPT/HCPCS: 93970

== ENCOUNTER → 2021-04-24 14:44 | Outpatient (CLI) | payer OTHER, SELFPAY ==
--- NOTE | ~2021-04-24 | CT_ITS ---
EXAMINATION: CTA chest PE protocol DATE: 04/24/2021 15:10 INDICATION: Left upper back pain, same as patient experienced with pulmonary embolism last year. TECHNIQUE: Computed tomography angiography (CTA) of the chest was performed with 100 mL Omnipaque-350 intravenous contrast timed to evaluate the pulmonary arteries. Coronal maximum intensity projection 3D-reconstructions were created by the technologist. Automated exposure control and iterative reconst ruction technique were employed. Exam dose: 586.85 mGy-cm total exam DLP. COMPARISON: 07/23/2020 CT chest / CT pulmonary scan FINDINGS: There is diagnostic contrast enhancement of the pulmonary arteries and no evidence of pulmo nary embolism. No thoracic aortic aneurysm or dissection. There is thoracic and abdominal aortic atherosclerotic jordyn cification. Normal heart size. No pericardial or pleural effusion. No hilar or mediastinal mass lesion or lymphad enopathy. No pulmonary infiltrate or consolidation or pulmonary mass lesion is detected. Normal morphology of the adrenal glands. Diffuse idiopathic skeletal hyperostosis of the thoracic spine. Included skeletal structures are othe rwise unremarkable. IMPRESSION: No evidence of pulmonary embolism Reviewed, dictated and finalized at Location A. Reviewed, dictated and finalized at location A.
[2021-04-24 15:01] LABS: Estimated Glomerular Filt Rate 56
== END ==
PROVIDERS: PCP Internal Medicine; Visit Provider Internal Medicine
DX: M54.9 Dorsalgia, unspecified (principal)
CPT/HCPCS: 71275; Q9967

== ENCOUNTER 2024-03-12 09:16 | Outpatient (CLI) | payer BC, SELFPAY ==
--- NOTE | ~2024-03-12 | XR_ITS ---
Left foot Technique: AP, oblique, and lateral views were obtained. Clinical History: Pain Findings: No acute fracture or dislocation is seen. There is focal sclerosis and possible mild flatte анна at the second metatarsal head.. Joint spaces are preserved without erosive or degenerative clarke e. Soft tissues are unremarkable. Impression: Sclerosis and probable focal flattening at the second metatarsal head, compatible with developing Esteban iberg's infraction. Reviewed, dictated and finalized at location M. Impression: Sclerosis and probable focal flattening at the second metatarsal head, compatib le with developing Freiberg's infraction.
== END 2024-03-12 09:17 ==
LOC: MICIMG 09:19
PROVIDERS: PCP Nurse Practitioner; Visit Provider Nurse Practitioner
DX: M79.672 Pain in left foot (principal)
CPT/HCPCS: 73630

== ENCOUNTER 2025-10-13 08:12 | Outpatient (CLI) | payer BC, SELFPAY ==
--- NOTE | ~2025-10-13 | CT_ITS ---
EXAMINATION: CT sinus wo con COMPARISON: None HISTORY: Chronic sinusitis TECHNIQUE: Axial images were obtained without IV contrast. Sagittal, coronal reconstruction images were obtained from the axial views. CT scan performed using dose optimization techniques including the following automated exposure control; adjustment of mA and/or kV; use of iterative reconstruction technique. Automatic exposure control was used to reduce radiation dose. Permanent radiation dose record is archived to PACS. FINDINGS: Visualized brain parenchyma, soft tissues and optic globes appear unremarkable. Frontal sinus is unremarkable. Moderate mucosal thickening in the ethmoidal air cells bilaterally. Minimal mucosal thickening in the left maxillary sinus. The ostiomeatal complexes are patent but narrowed bilaterally especially on the left. Nasal septum midline, no significant thickening of the turbinates on either the nasal cavities. Moderate mucosal thickening noted in the left. No ascites. No osseous destruction or wall thickening identified. IMPRESSION: Sinusitis detailed above Reviewed, dictated and finalized at location P. NER ALLIANCE MANAGER IMPRESSION: Sinusitis detailed above
== END 2025-10-13 08:13 | disposition home or self-care (01) ==
PROVIDERS: PCP Family Medicine; Visit Provider Nurse Practitioner Family
DX: J32.9 Chronic sinusitis, unspecified (principal)
CPT/HCPCS: 70486

== ENCOUNTER 2025-11-09 14:12 | Outpatient (CLI) | payer BC, SELFPAY ==
--- OUTSIDE RECORDS SUMMARY | 2025-11-09 14:26 | XMS_ITS | Clinical Summary ---
Author Organization [facility] [address] Address [address] [place] [address] Care Team Providers Care Petrographer Name Role Phone Thee Diamond DO Primary Care Provider [phone] Allergies No known active allergies Medications pantoprazole DR (PROTONIX) 20 mg EC tablet 10/17/2021 Active escitalopram (LEXAPRO) 10 mg tablet 10/31/2021 Active atorvastatin (LIPITOR) 20 mg tablet 10/31/2021 Active amLODIPine (NORVASC) 5 mg tablet 10/31/2021 Active cyclobenzaprine (FLEXERIL) 10 mg tablet Take 1 tablet (10 mg total) by mouth 3 (three) times a day as needed for muscle spasms 20 tablet 12/05/2023 Active Active Problems No known active problems Social History Tobacco Use Types Packs/Day Years Used Date Smoking Tobacco: Never Assessed Sex and Gender Information Value Date Recorded Sex Assigned at Not on file Legal Sex Male 8:21 AM CDT Gender Identity Not on file Sexual Orientation Not on file Last Filed Vital Signs Vital Sign Reading Time Taken Comments Blood Pressure 168/88 12/05/2023 8:05 AM MOLD CUTTING MACHINE OPERATOR Pulse 77 12/05/2023 8:05 AM MOLD CUTTING MACHINE OPERATOR Temperature 36.6 C (97.8 F) 12/05/2023 8:05 AM MOLD CUTTING MACHINE OPERATOR Respiratory Rate 14 12/05/2023 8:05 AM MOLD CUTTING MACHINE OPERATOR Oxygen Saturation 97% 12/05/2023 8:05 AM MOLD CUTTING MACHINE OPERATOR Inhaled Oxygen Concentration - - Weight 91.9 kg (202 lb 8 oz) 12/05/2023 8:05 AM MOLD CUTTING MACHINE OPERATOR Height 175.3 cm (5' 9) 12/05/2023 8:05 AM MOLD CUTTING MACHINE OPERATOR Body Mass Index 29.9 12/05/2023 8:05 AM MOLD CUTTING MACHINE OPERATOR Plan of Treatment Health Maintenance Due Date Last Done Comments Colon Cancer Screening-Colonoscopy 1960 Depression Screening 1960 Fall Risk Assessment 1960 Hepatitis C Screening 1960 Prostate Cancer Screening-PSA 1960 DTaP/Tdap/Td Vaccine (1 - Tdap) 1971 Hepatitis B Screening 1978 Pneumococcal vaccine 65+ (1 of 1 - PCV) 2010 Zoster Vaccine (1 of 2) 2010 Covid-19 Vaccine (3 - season) 2025, 01/12/2021 Influenza Vaccine (#1) 2025 11/20/2017 Abdominal Aortic Aneurysm (AAA) Screen 2025 Well Visit 65+ 2025 Insurance [employer] ACCESS CHOICE Care Teams Petrographer Relationship Specialty Start Date End Date Thee Diamond DO PCP - General Internal Medicine 11/02/21
--- OUTSIDE RECORDS SUMMARY | 2025-11-09 14:26 | XMS_ITS | Clinical Summary ---
Author Organization [facility] Address [facility] [place] [address] Care Team Providers Care Equipment Washer Name Role Phone None, Provider Primary Care Provider Unavaila ble Allergies No known active allergies Medications amLODIPine (NORVASC) 5 MG tablet Take 1 tablet (5 mg total) by mouth daily. Active atorvastatin (LIPITOR) 20 MG tablet Take 1 tablet (20 mg total) by mouth nightly at bedtime. Active Active Problems No known active problems Encounters Date Type Department Care Team Description 09/27/2025 1:40 PM BLOCK MACHINE OPERATOR - 09/27/2025 2:09 PM BLOCK MACHINE OPERATOR Hospital Encounter [facility] Care [facility] [place] [address] Pauline Gerber FNP URI Discharge Disposition: Home or Self Care (Routine Discharge) 09/27/2025 Travel from Last 3 Months Family History Medical History Relation Comments No Known Problems Father No Known Problems Mother Relation Status Comments Father Mother Social History Tobacco Use Types Packs/Day Years Used Date Smoking Tobacco: Never Passive Smoke Exposure: Never Smokeless Tobacco: Never Tobacco Cessation:Counseling Given: Not Answered Alcohol Use Standard Drinks/Week Comments Yes 0 (1 standard drink = 0.6 oz pur e alcohol) Sex and Gender Information Value Date Recorded Sex Assigned at Male 09/27/2025 1:36 PM BLOCK MACHINE OPERATOR Legal Sex Male 1:34 PM BLOCK MACHINE OPERATOR Gender Identity Not on file Sexual Orientation Not on file Last Filed Vital Signs Vital Sign Reading Time Taken Comments Blood Pressure 154/89 09/27/2025 1:47 PM BLOCK MACHINE OPERATOR Pulse 102 09/27/2025 1:47 PM BLOCK MACHINE OPERATOR Temperature 36.4 C (97.5 F) 09/27/2025 1:47 PM BLOCK MACHINE OPERATOR Respiratory Rate 18 09/27/2025 1:47 PM BLOCK MACHINE OPERATOR Oxygen Saturation 98% 09/27/2025 1:47 PM BLOCK MACHINE OPERATOR Inhaled Oxygen Concentration - - Weight 90.7 kg (200 lb) 09/27/2025 1:47 PM BLOCK MACHINE OPERATOR Height 177.8 cm (5' 10) 09/27/2025 1:47 PM BLOCK MACHINE OPERATOR Body Mass Index 28.7 09/27/2025 1:47 PM BLOCK MACHINE OPERATOR Plan of Treatment Health Maintenance Due Date Last Done Comments Colorectal Cancer Screening Colonoscopy (10 Years) 1960 Hepatitis C 1978 DTaP, Tdap and Td Vaccines ( 1 - Tdap) 1979 Pneumococcal Vaccine: 50+ Years (1 of 1 - PCV) 2010 Zoster Vaccines (1 of 2) 2010 COVID-19 Vaccine (3 - 2024-2 6 season) 2025 02/02/2021, 01/12/2021 Influenza Adult (#1) 2025 11/20/2017 RSV Immunization or 60+ Years (1 - 1-dose 75+ series) 2035 Hepatitis A Vaccines Aged Out No long er eligible based on patient's age to complete this topic Meningococcal B Vaccine Aged Out No l onger eligible based on patient's age to complete this topic Meningococcal Vaccine Aged Out No poornima sylvia eligible based on patient's age to complete this topic RSV Immunizations Under 20 Months Aged Out No longer eligible b ased on patient's age to complete this topic Insurance [facility] Care Teams Equipment Washer Relationship Specialty Start Date End Date None, Provider, PCP - General UNKNOWN PHYSICIAN SPECIALTY 09/27/25
== END 2025-11-09 14:13 | disposition home or self-care (01) ==
LOC: ANHAUDIO 14:13
PROVIDERS: PCP Family Medicine; Visit Provider Otolaryngology
DX: H90.42 Sensorineural hearing loss, unilateral, left ear, with unrestricted hearing on the contralateral side (principal); H93.12 Tinnitus, left ear
CPT/HCPCS: 92557; 92567